=== PATIENT | male | born 1950 | race Caucasian/White ===

== ENCOUNTER 2021-06-30 17:16 | Emergency (ER) | payer MEDICAID, SELFPAY ==
[2021-06-30 17:34] VITALS: BP 114/76; PULSE 86; RESP 16; TEMP 36.7; O2SAT 96; BMI 23.0
[2021-06-30 18:07] VITALS: BP 131/76; PULSE 72; RESP 16; TEMP 36.9; O2SAT 92
--- NOTE | 2021-06-30 18:07 | ED_ITS ---
HPI - Nausea/Vomiting/Diarrhea General: Chief complaint: Nausea/Vomiting/Diarrhea Stated complaint: Nausia, Vomiting with blood Time Seen by Provider: 06/30/21 17:45 Source: patient Mode of arrival: ambulatory Limitations: no limitations History of Present Illness: HPI Narrative: 71-year-old male states for the last 5 to 6 days has been having generalized body aches low-grade fevers vomiting diarrhea he has had a slight cough. He states multiple family members have had similar symptoms but have not had any testing. He has had no shortness of breath denies any chest pain he states he has had some fatigue malaise and mainly body aches. He states that he has had some slight blood in his vomitus no blood in his stool. Associated nausea: Yes Associated symtoms: Reports nausea; Denies chest pain, dysuria or headache(s) Review of Systems Const: Reports: body aches Eyes: Denies: blurry vision or eye discomfort ENMT: Denies: throat pain or dental pain Card: Denies: chest pain Resp: Denies: dyspnea GI: Reports: nausea, vomiting and diarrhea : Denies: dysuria Musc: Denies: neck pain or back pain Skin/Breast: Denies: rash Neuro: Denies: headache(s) Psych: Denies: depression [place]/Lymph: Denies: easy bruising All/Imm: Denies: urticaria [facility] ED PFSH: Medical History (Updated 06/30/21 @ 20:05 by Ceasar Brown MD) Anxiety Blindness of right eye COPD (chronic obstructive pulmonary disease) Depression Dyslipidemia CHIKI (obstructive sleep apnea) PVD (peripheral vascular disease) Vitamin D deficiency Family History Other CAD (coronary artery disease) Cancer Myocardial infarction Thyroid disease Social History Smoking and tobacco status: former smoker Quit status (tobacco): has quit using tobacco Year quit tobacco: 2017 Alcohol intake: current Alcohol intake frequency: 0-2 Drinks per Day Physical Exam Const: COMMON NORMALS: no acute distress, patient oriented x3 and healthy appearing HENMT: COMMON NORMALS: normocephalic and atraumatic HEAD & SCALP: normocephalic and atraumatic Eye: COMMON NORMALS: Equal, round and reactive pupils present and EOMs intact bilaterally PUPIL: Yes Equal, round and reactive pupils present Neck/C-Spine: COMMON NORMALS: full ROM and supple Chest: COMMONS NORMALS: normal inspection of the chest and normal palpation of entire chest wall Resp: COMMON NORMALS: normal respiratory effort, No retractions, No use of accessory muscles and clear to auscultation bilaterally AUSCULTATION: clear to auscultation bilaterally Cardio: COMMON NORMALS: regular rate, regular rhythm and No murmurs present (Cardio) RATE: regular rate RHYTHM: regular rhythm GI: COMMON NORMALS: Normal to inspection, nondistended, normoactive bowel sounds present, Soft to palpation, non-tender and no masses PALPATION: Yes Soft to palpation Extremity: COMMON NORMALS: normal to inspection and full ROM Neuro: COMMON NORMALS: patient oriented x3, moves all extremities and no focal motor deficits Psych: COMMON NORMALS: mental status grossly normal, Normal thought process present and cooperative THOUGHT PROCESS: Normal thought process present Skin: COMMON NORMALS: no rashes or lesions noted and no wounds GENERAL SKIN EXAM: no rashes or lesions noted Course Vital Signs: Vital signs: Vital Signs Temperature 98.4 F 06/30/21 18:07 Pulse Rate 72 06/30/21 18:07 Respiratory Rate 16 06/30/21 18:07 Blood Pressure 131/76 06/30/21 18:07 Pulse Oximetry 92 06/30/21 18:07 MDM - Nausea/Vomiting/Diarrhea MDM Narrative: Medical decision making narrative: Patient presents with vomiting diarrhea and some body aches. Patient here is adamantly refusing Covid testing he does not want to do anything with Covid. I recommended testing because of the symptoms and the findings on CT I believe he might likely have Covid but he still refuses he is no requiring any oxygen here he feels improved after IV fluids will prescribe him Zofran he is return if worsening. Lab Data: Labs: Lab Results 06/30/21 06/30/21 06/30/21 18:05 18:05 18:05 WBC 7.3 10^3/uL 10^3/ uL (4.0-10.0) RBC 5.64 10^6/uL H 10 ^6/uL (4.1-5.3) Hgb 16.9 g/dL H g/dL (11.7-16.6) Hct 49.0 % % (42.0-52.0) MCV 86.9 fl fl (80-94) MCH 30.0 pg pg (28.0-34.0) MCHC 34.5 g/dL g/dL (30.0-36.0) RDW 13.6 % % (12.1-15.1) Plt Count 169 10^3/cmm 10^3 /cmm (130-400) MPV 11.0 fL H fL (7.4-10.4) Neut % (Auto) 71.3 % % Lymph % (Auto) 21.3 % % [place] % (Auto) 7.2 % % Eos % (Auto) 0.0 % % Baso % (Auto) 0.1 % % Neut # (Auto) 5.22 10^3/uL 10^3 /uL (1.8-7.7) Lymph # (Auto) 1.6 10^3/uL 10^3/ uL (0.8-4.8) [place] # (Auto) 0.5 10^3/uL 10^3/ uL (0.2-0.9) Eos # (Auto) 0.0 10^3/uL 10^3/ uL (0.0-0.8) Baso # (Auto) 0.0 10^3/uL 10^3/ uL (0.0-0.1) Nucleated RBC % (a uto) 0 % % Nucleated RBCs # 0.0 /100WBC /100W BC Sodium 131 mmol/L L mmol /L (136-145) Potassium 4.2 mmol/L mmol/L (3.5-5.1) Chloride 96 mmol/L L mmol/ L (98-107) Carbon Dioxide 25 mmol/L mmol/L (22-29) Anion Gap 14.2 (5-19) BUN 17 mg/dL mg/dL (8-23) Creatinine 0.7 mg/dL mg/dL (0.7-1.2) GFR Calculation 111.5 mL/min mL/m in (90-130) Glucose 112 mg/dL mg/dL (65-115) Calculated Osmolal ity 274 mOsm/kg L mOs m/kg (285-295) Calcium 8.1 mg/dL L mg/dL (8.5-10.5) Total Bilirubin 0.6 mg/dL mg/dL (0.15-1.2) AST 28 U/L U/L (0-40) ALT 18 U/L U/L (0-41) Alkaline Phosphata se 80 IU/L IU/L (40-130) Total Protein 7.4 g/dL g/dL (6.6-8.7) Albumin 3.9 g/dL g/dL (3.5-5.2) Globulin 3.5 g/dL g/dL (1.3-4.6) Lipase 13 U/L U/L (13-60) Urine Color Yellow (Yellow) Urine Appearance Clear (CLEAR) Urine pH 5 (5-7) Ur Specific Gravit y 1.025 (1.005-1.030) Urine Protein Trace (Negative) Urine Glucose (UA) Norm (Normal) Urine Ketones 2+ H (Negative) Urine Blood Neg (Negative) Urine Nitrate Negative (Negative) Urine Bilirubin Neg (Negative) Urine Urobilinogen Norm mg/dL mg/dL (Negative) Ur Leukocyte Angely ase Negative (Negative) Urine RBC 0-4 /hpf H /hpf (0-2) Urine WBC 0-4 /hpf H /hpf (0-5) Ur Squamous Epith Cells 0-4 /hpf H /hpf (0-5) Amorphous Sediment Not Reportable Urine Bacteria Trace /hpf /hpf (NONE) Urine Mucus 2+ /hpf /hpf Imaging Data^: CT Abd/Pel: Attestation: I personally reviewed and interpreted this imaging study as follows: Radiologist's impression: [address] [address] [address] Scan Report Signed with Addenda Patient: Jaswant Pastor Unit #: [id number] : 1950 Age/Sex: 71 / M ADM Date: 06/30/21 Loc: ER Room/Bed: Attending Dr: Ordering Provider/Ordering MD: Ceasar Brown MD Date of Service: 06/30/21 Procedure(s): CT abdomen pelvis w con* [id number] Accession Number(s): [id number] Report Number: [id number]/CT abdomen pelvis w con* [id number] Additional Impression: 4. Ground-glass opacities in the lung bases, consistent with pneumonia. This could be seen COVID-19 pneumonia. Addendum Dictated By: Nathan Perea Addendum Signed By: Nathan Perea Signed Date/Time: 06/30/21 2 007 Addendum Cosigned By: PROCEDURE INFORMATION: Exam: CT Abdomen And Pelvis With Contrast Exam date and time: 06/30/2021 6:42 PM Age: 71 years old Clinical indication: Nausea and vomiting; Abdominal pain; Generalized; Additional info: Abd pain, n/v/d, loss of appetite TECHNIQUE: Imaging protocol: Computed tomography of the abdomen and pelvis with contrast. Radiation optimization: All CT scans at this facility use at least one of these dose optimization techniques: automated exposure control; mA and/or kV adjustment per patient size (includes targeted exams where dose is matched to clinical indication); or iterative reconstruction. Contrast material: OMNI 300; Contrast volume: 95 ml; Contrast route: INTRAVENOUS (IV); COMPARISON: MRI Lumbar Spine w/o [id number] 01/16/2018 6:44 AM RADIATION DOSE METRICS: Total DLP (mGy-cm): 1151.17 FINDINGS: Lungs: Scattered ground-glass opacities in both lung bases. Diaphragm: Small hiatal hernia. Liver: Normal. No mass. Gallbladder and bile ducts: Normal. No calcified stones. No ductal dilation. Pancreas: Normal. No ductal dilation. Spleen: Normal. No splenomegaly. Adrenal glands: Normal. No mass. Kidneys and ureters: Hypodensity in the left kidney is too small to characterize but is most likely a cyst. No follow-up imaging is recommended. 4 mm and 2 mm nonobstructing calculi in the left kidney. No ureteral calculus or hydronephrosis. Stomach and bowel: Diverticulosis of the distal colon. No diverticulitis. The stomach and small bowel are unremarkable. No wall thickening or obstruction. Appendix: The appendix is visualized and is normal. Intraperitoneal space: Unremarkable. No free air. No significant fluid collection. Vasculature: Atherosclerotic disease with calcifications. No aneurysm. Lymph nodes: Unremarkable. No enlarged lymph nodes. Urinary bladder: The urinary bladder is decompressed with wall thickening measuring up to 8 mm. Reproductive: Mildly enlarged prostate. Bones/joints: Mild degenerative changes and scoliosis of the spine. No fracture identified. Soft tissues: Unremarkable. CT/CT abdomen pelvis w con* [id number] IMPRESSION: 1. Wall thickening of the urinary bladder may relate to nondistention, but cystitis is not excluded. Clinical correlation recommended. 2. Diverticulosis of the colon. 3. Nonobstructing left renal calculi. COMMENTS: Consistent with the [employer] [place] [employer]'s Incidental Findings Committee white paper (J Am Tirso Radiol 2018): Any incidental renal lesion less than 1 cm or classified as too small to characterize, or any incidental cystic renal lesion characterized as simple-appearing, is likely benign. No follow-up imaging is recommended for these lesions per consensus recommendations based on imaging criteria. Dictated By: Nathan Perea Signed By: Nathan Perea Signed Date/Time: 06/30/211935 DD/ 41 Discharge Plan Discharge Patient Disposition: Home Clinical Impression: Nausea vomiting and diarrhea Condition: Stable Prescriptions: New ondansetron 4 mg tablet,disintegrating 4 mg PO Q6H PRN (Reason: nausea and vomiting) Qty: 14 RF: 0 No Action meclizine 25 mg tablet 25 mg PO BID PRN (Reason: dizziness) Qty: 30 RF: 0 atorvastatin 40 mg tablet 40 mg PO DAILY Qty: 90 RF: 0 bupropion HCl [Wellbutrin XL] 150 mg tablet extended release 24 hr 150 mg PO QAM Qty: 90 RF: 0 buspirone 7.5 mg tablet 7.5 mg PO BID Qty: 120 RF: 0 fluticasone propionate [Flonase Allergy Relief] 50 mcg/actuation spray,suspension 1 spray INTRANASAL DAILY Qty: 16 RF: 2 tadalafil [Cialis] 20 mg tablet 20 mg PO DAILY PRN (Reason: sexual activity) Qty: 5 RF: 0 Anoro Ellipta 62.5-25 mcg/actuation blister with device 1 inh INHALATION Q24H Qty: 60 RF: 2 Discharge Orders: Discharge ED (Routine); Ordered 06/30/21 Ordered By: Ceasar Brown Referrals: Dov Pedraza DO [Primary Care Provider] - 1-3 days Discharge Diet: Advance as tolerated Discharge Activity: Resume usual activity Patient Instructions: Acute Nausea and Vomiting (ED) Coding Level of Care Code ED Biodies[employer] Product Manager for Chg Fwd Exam Comprehensive
[2021-06-30 18:16] LABS: Basophils % 0.1 %; Hemoglobin 16.9 g/dL (11.7-16.6); Lymphocytes # 1.6 10^3/uL (0.8-4.8); Lymphocytes % 21.3 %; Mean Corpuscular HGB Conc 34.5 g/dL (30.0-36.0); Mean Corpuscular Volume 86.9 fl (80-94); Monocytes # 0.5 10^3/uL (0.2-0.9); Monocytes % 7.2 %; Neutrophils # 5.22 10^3/uL (1.8-7.7); Neutrophils % 71.3 %; Nucleated Red Blood Cells % 0 %; Platelet Count 169 10^3/cmm (130-400); Red Blood Count 5.64 10^6/uL (4.1-5.3); Red Cell Distribution Width 13.6 % (12.1-15.1); White Blood Count 7.3 10^3/uL (4.0-10.0)
[2021-06-30 18:33] LABS: Alanine Aminotransferase 18 U/L (0-41); Albumin Level 3.9 g/dL (3.5-5.2); Alkaline Phosphatase 80 IU/L (40-130); Anion Gap 14.2 (5-19); Aspartate Amino Transferase 28 U/L (0-40); Blood Urea Nitrogen 17 mg/dL (8-23); Calcium 8.1 mg/dL (8.5-10.5); Carbon Dioxide 25 mmol/L (22-29); Chloride 96 mmol/L (98-107); Globulin 3.5 g/dL (1.3-4.6); Glomerular Filtration Rate 111.5 mL/min (90-130); Glucose 112 mg/dL (65-115); Lipase 13 U/L (13-60); Osmolality Calculated 274 mOsm/kg (285-295); Potassium 4.2 mmol/L (3.5-5.1); Sodium 131 mmol/L (136-145); Total Bilirubin 0.6 mg/dL (0.15-1.2); Total Protein 7.4 g/dL (6.6-8.7)
--- NOTE | 2021-06-30 18:42 | CTR_ITS ---
PROCEDURE INFORMATION: Exam: CT Abdomen And Pelvis With Contrast Exam date and time: 06/30/2021 6:42 PM Age: 71 years old Clinical indication: Nausea and vomiting; Abdominal pain; Generalized; Additional info: Abd pain, n/v/d, loss of appetite TECHNIQUE: Imaging protocol: Computed tomography of the abdomen and pelvis with contrast. Radiation optimization: All CT scans at this facility use at least one of these dose optimization techniques: automated exposure control; mA and/or kV adjustment per patient size (includes targeted exams where dose is matched to clinical indication); or iterative reconstruction. Contrast material: OMNI 300; Contrast volume: 95 ml; Contrast route: INTRAVENOUS (IV); COMPARISON: MRI Lumbar Spine w/o [id number] 01/16/2018 6:44 AM RADIATION DOSE METRICS: Total DLP (mGy-cm): 1151.17 FINDINGS: Lungs: Scattered ground-glass opacities in both lung bases. Diaphragm: Small hiatal hernia. Liver: Normal. No mass. Gallbladder and bile ducts: Normal. No calcified stones. No ductal dilation. Pancreas: Normal. No ductal dilation. Spleen: Normal. No splenomegaly. Adrenal glands: Normal. No mass. Kidneys and ureters: Hypodensity in the left kidney is too small to characterize but is most likely a cyst. No follow-up imaging is recommended. 4 mm and 2 mm nonobstructing calculi in the left kidney. No ureteral calculus or hydronephrosis. Stomach and bowel: Diverticulosis of the distal colon. No diverticulitis. The stomach and small bowel are unremarkable. No wall thickening or obstruction. Appendix: The appendix is visualized and is normal. Intraperitoneal space: Unremarkable. No free air. No significant fluid collection. Vasculature: Atherosclerotic disease with calcifications. No aneurysm. Lymph nodes: Unremarkable. No enlarged lymph nodes. Urinary bladder: The urinary bladder is decompressed with wall thickening measuring up to 8 mm. Reproductive: Mildly enlarged prostate. Bones/joints: Mild degenerative changes and scoliosis of the spine. No fracture identified. Soft tissues: Unremarkable. CT/CT abdomen pelvis w con* [id number] IMPRESSION: 1. Wall thickening of the urinary bladder may relate to nondistention, but cystitis is not excluded. Clinical correlation recommended. 2. Diverticulosis of the colon. 3. Nonobstructing left renal calculi. COMMENTS: Consistent with the [place] [employer]'s Incidental Findings Committee white paper (J Am Tirso Radiol 2018): Any incidental renal lesion less than 1 cm or classified as too small to characterize, or any incidental cystic renal lesion characterized as simple-appearing, is likely benign. No follow-up imaging is recommended for these lesions per consensus recommendations based on imaging criteria.
--- NOTE | 2021-06-30 18:49 | PC.NURSE ---
Pt refusing Influenza and Covid swabs at th time. advised
[2021-06-30] MEDS: iohexol 300 mg/mL 100 mL Btl IV (18:55)
[2021-06-30 19:05] LABS: Urine Color Yellow (Yellow)
[2021-06-30 19:06] LABS: Add Urine Microscopic? YES; Bilirubin Urine Neg (Negative); Blood Urine Neg (Negative); Glucose Urine UA Norm (Normal); Ketones Urine 2+ (Negative); Leukocyte Esterase Urine Negative (Negative); Nitrate Urine Negative (Negative); Protein Urine Trace (Negative); Specific Gravity, Urine 1.025 (1.005-1.030); Urine Appearance Clear (CLEAR); Urobilinogen Urine Norm (Negative); pH Urine 5 (5-7)
[2021-06-30 19:13] LABS: Add Urine Culture? No; Bacteria Urine TRACE /hpf; Mucus Urine 2+ /hpf; RBC Urine 0-4 /hpf (0-2); Squamous Epithelial Cell Urine 0-4 /hpf (0-5); WBC Urine 0-4 /hpf (0-5)
[2021-06-30] MEDS: ondansetron 2 mg/ML SDV 2 mL 4 MG IVP (19:50)
[2021-06-30] MEDS: sodium chloride 0.9% 1,000 ML 999 ML IV ×2 (19:50→20:01)
[2021-06-30] MEDS: diphenoxylate/atropine Tablet 1 TAB PO (19:59)
--- NOTE | 2021-06-30 20:21 | XRR_ITS ---
PROCEDURE INFORMATION: Exam: XR Chest Exam date and time: 06/30/2021 8:21 PM Age: 71 years old Clinical indication: Shortness of breath; Additional info: SOB TECHNIQUE: Imaging protocol: XR of the chest. Views: 1 view. COMPARISON: 1. CR Chest 2 views* [id number] 12/23/2017 9:[address] abdomen pelvis w con* [id number] 06/30/2021 6:52:30 PM FINDINGS: Lungs: Changes of emphysema. Subtle ground-glass opacities in the peripheral right lung base and both peripheral lungs is better visualized on the CT. No focal consolidation. Pleural spaces: Unremarkable. No pleural effusion. No pneumothorax. Heart/Mediastinum: Unremarkable. No cardiomegaly. Bones/joints: Unremarkable. XR/XR chest 1V portable [id number] IMPRESSION: 1. Subtle ground-glass opacities in both lungs, consistent with pneumonia.
[2021-06-30 20:46] VITALS: BP 137/84; PULSE 80; O2SAT 93
[2021-06-30] MEDS: ondansetron 4 MG Tablet PO (20:54)
== END 2021-06-30 20:55 | disposition home or self-care (01) ==
PROVIDERS: Family Medicine; Emergency Provider Emergency Medicine; PCP Family Medicine
DX: R11.2 Nausea with vomiting, unspecified (principal); R19.7 Diarrhea, unspecified; J44.9 Chronic obstructive pulmonary disease, unspecified; E78.5 Hyperlipidemia, unspecified; Z87.891 Personal history of nicotine dependence
CPT/HCPCS: 71045; 74177; 80053; 81001; 83690; 85025; 96361; 96374; 99283; J2405; J7030; Q0162; Q9967

== ENCOUNTER → 2022-07-06 12:11 | Outpatient (BNVA) | payer MEDICAID, SELFPAY | PROVIDERS: PCP Family Medicine; Visit Provider Family Medicine | DX: M25.512 Pain in left shoulder (principal); E78.5 Hyperlipidemia, unspecified; Z12.5 Encounter for screening for malignant neoplasm of prostate | CPT/HCPCS: 73030; 80053; 80061; 84443; 85025; G0103 ==

== ENCOUNTER → 2022-09-20 17:30 | Outpatient (BNVA) | payer MEDICARE, MEDICAID, SELFPAY | PROVIDERS: PCP Family Medicine; Visit Provider Family Medicine | DX: M25.512 Pain in left shoulder (principal); R53.83 Other fatigue; E55.9 Vitamin D deficiency, unspecified; R25.1 Tremor, unspecified; N52.9 Male erectile dysfunction, unspecified | CPT/HCPCS: 82306; 82607; 83540; 84403; 84443 ==

== ENCOUNTER → 2022-10-19 11:30 | Outpatient (BNVA) | payer MEDICARE, MEDICAID, SELFPAY | PROVIDERS: PCP Family Medicine; Visit Provider Family Medicine | DX: R05.9 Cough, unspecified (principal); R53.83 Other fatigue; J01.00 Acute maxillary sinusitis, unspecified; J30.2 Other seasonal allergic rhinitis | CPT/HCPCS: 87400; 87426 ==

== ENCOUNTER 2022-10-24 06:00 | Outpatient (RCR) | payer MEDICARE, MEDICAID, SELFPAY | END 2022-11-18 23:59 | disposition home or self-care (01) | LOC: TPT 06:00 | PROVIDERS: PCP Family Medicine; Visit Provider Family Medicine | DX: M25.512 Pain in left shoulder (principal) | CPT/HCPCS: 97110; 97140; 97162 ==

== ENCOUNTER 2022-11-19 06:00 | Outpatient (RCR) | payer MEDICARE, MEDICAID, SELFPAY | END 2022-11-30 23:59 | disposition home or self-care (01) | LOC: TPT 06:00 | PROVIDERS: PCP Family Medicine; Visit Provider Family Medicine | DX: M25.512 Pain in left shoulder (principal) | CPT/HCPCS: 97110; 97140 ==

== ENCOUNTER → 2023-02-15 10:24 | Outpatient (BNVA) | payer MEDICARE, MEDICAID, SELFPAY | PROVIDERS: PCP Family Medicine; Visit Provider Family Medicine | DX: Z12.2 Encounter for screening for malignant neoplasm of respiratory organs (principal); Z87.891 Personal history of nicotine dependence; J44.9 Chronic obstructive pulmonary disease, unspecified; E78.5 Hyperlipidemia, unspecified; Z12.5 Encounter for screening for malignant neoplasm of prostate; E55.9 Vitamin D deficiency, unspecified; R09.89 Other specified symptoms and signs involving the circulatory and respiratory systems | CPT/HCPCS: 80053; 80061; 82306; 84443; 85025; G0103 ==

== ENCOUNTER 2023-02-22 10:07 | Outpatient (CLI) | payer MEDICARE, MEDICAID, SELFPAY ==
--- NOTE | 2023-02-22 11:00 | CT_ITS ---
WS: [id number] LDCT LUNG CANCER SCREENING HISTORY: Z12.2 - Encounter for screening for malignant neoplasm TECHNIQUE: Axial imaging performed from the apices to 1 cm below the costophrenic angles. Coronal and sagittal reformats are submitted with axial MIP series. All CT scans at [facility] use at least one of these dose optimization techniques: automated exposure control; mA and/or kV adjustment per patient size (includes targeted exams where dose is matched to clinical indication); or iterativ e reconstruction. DLP: 86.71 mGy.cm DIvol: Mean CTDIvol: 1.70 (mGy) COMPARISON: None available. Diagnostic quality: Satisfactory Lungs: Moderate pulmonary hyperexpansion with central lobular emphysema. 3 to 5 mm noncalcified nodul es are noted at the lung apices. These are stable since 2011 CT. No pulmonary mass or pneumonia. No endobronchial lesions. Heart: Normal size heart with no pericardial effusion. Mild coronary artery calcification. Other findings: No mediastinal or hilar adenopathy. Small hiatal hernia. Nonobstructing calcification LEFT kidney. Normal adrenal glands. Biconcave fracture at T6 and T8. Mild anterior wedging of T10. A ge indeterminate fractures but new since 2018. CT/CT lung screening [id number] IMPRESSION: LUNG-RADS: 2S-Benign Appearance or Behavior with Significant Findings FOLLOW UP: 12 Month: Continue annual screening with LDCT OTHER FINDINGS (S MODIFIER): Age-indeterminate osteoporotic compression fractur es at T6, T8 and T10.
== END 2023-02-22 10:08 | disposition home or self-care (01) ==
LOC: RAD 10:11
PROVIDERS: PCP Family Medicine; Visit Provider Family Medicine
DX: Z12.2 Encounter for screening for malignant neoplasm of respiratory organs (principal); Z87.891 Personal history of nicotine dependence
CPT/HCPCS: 71271

== ENCOUNTER 2023-02-26 07:42 | Outpatient (CLI) | payer MEDICARE, MEDICAID, SELFPAY ==
--- NOTE | 2023-02-26 08:30 | USCV_ITS ---
Jaswant Pastor Age: 72 Gender: M : 1950 Exam Date: 02/26/2023 08:01 Ordering Phys: Sabra Jasso MD Technologist: Harley Kent Exam Location: [facility] [place] Indication: carotid bruit and dizziness Risk Factors: Previous Vascular Surgery: Right Brachial BP: / Left Brachial BP: / Right Left Velocity (cm/s) Spectral Plaque Velocity (cm/s) Spectral Plaque Syst/Diast Broadening Syst/Diast Broadening 68.40/ 18.70 Prox CCA 80.90 / 17.00 57.30/ 19.80 Mid CCA 50.20 / 13.70 48.00/ 16.40 Distal CCA 55.90 / 14.50 49.10/ 20.30 Prox ICA 57.30 / 17.50 56.70/ 21.10 Mid ICA 66.20 / 26.70 50.70/ 17.30 Distal ICA 64.60 / 24.60 54.60 ECA 84.80 0.99 ICA/CCA 1.32 Antegrade Vertebral Antegrade 44.00/ 14.50 cm/s 31.00/ 12.30 cm/s Tri Subclavian Bi 84.60 84.70 CONCLUSIONS Right ICA stenosis <50%. Mild atheromatous plaque right carotid bulb/ICA. Left ICA stenosis <50%. Mild atheromatous plaque left carotid bulb/ICA. Normal antegrade Doppler flow noted in the right vertebral artery. Normal antegrade Doppler flow noted in the left vertebral artery. Toan Napoles MD (Electronically Signed) Final Date: 26 February 2023 09:22 S
== END 2023-02-26 07:43 | disposition home or self-care (01) ==
PROVIDERS: PCP Family Medicine; Visit Provider Family Medicine
DX: R09.89 Other specified symptoms and signs involving the circulatory and respiratory systems (principal); R42 Dizziness and giddiness
CPT/HCPCS: 80053; 80061; 82306; 84443; 85025; 93880; G0103

== ENCOUNTER → 2024-04-20 09:52 | Outpatient (BNVA) | payer MEDICAID, MEDICARE, SELFPAY | PROVIDERS: PCP Family Medicine; Visit Provider Nurse Practitioner Family | DX: M54.50 Low back pain, unspecified (principal) | CPT/HCPCS: 81000 ==

== ENCOUNTER 2024-05-13 09:51 | Emergency (ER) | payer MEDICARE, SELFPAY ==
[2024-05-13 10:18] VITALS: BP 144/74; PULSE 59; RESP 16; TEMP 36.4; O2SAT 98; BMI 24.4
--- NOTE | 2024-05-13 10:29 | XR_ITS ---
WS: [id number] Exam: XR abdomen 1V* [id number] Date/Time of Exam: 05/13/2024 11:02 AM Reason For Exam: abd pain No bowel obstruction or free air. No sign of organ enlargement. Mild degenerative changes of the L-sp ine. XR/XR abdomen 1V* [id number] IMPRESSION: 1. No acute abdominal process.
[2024-05-13 10:42] LABS: Basophils # 0.1 10^3/uL (0.0-0.1); Basophils % 0.9 %; Eosinophils # 0.2 10^3/uL (0.0-0.8); Eosinophils % 2.2 %; Hematocrit 44.7 % (37-53); Lymphocytes # 3.8 10^3/uL (0.8-4.8); Lymphocytes % 43.9 %; Mean Corpuscular HGB Conc 32.7 g/dL (30-55); Mean Corpuscular Hemoglobin 28.8 pg (27-33); Mean Corpuscular Volume 88.2 fl (82-101); Mean Platelet Volume 10.4 fL (7.4-10.4); Monocytes # 0.8 10^3/uL (0.2-0.9); Monocytes % 9.6 %; Neutrophils # 3.77 10^3/uL (1.8-7.7); Neutrophils % 43.1 %; Nucleated Red Blood Cells % 0 %; Platelet Count 246 10^3/cmm (157-399); Red Blood Count 5.07 10^6/uL (3.85-5.65); Red Cell Distribution Width 14.8 % (12.1-15.1); White Blood Count 8.75 10^3/uL (3.29-11.43)
[2024-05-13 11:00] LABS: Alanine Aminotransferase 11 U/L (0-41); Albumin Level 3.7 g/dL (3.5-5.2); Alkaline Phosphatase 86 U/L (40-130); Blood Urea Nitrogen 13 mg/dL (8-23); Calcium 8.3 mg/dL (8.5-10.5); Carbon Dioxide 24 mmol/L (22-29); Chloride 101 mmol/L (98-107); Creatinine Clr Calc Pharmacy 81.9083; Globulin 3.2 g/dL (1.3-4.6); Glucose 101 mg/dL (65-115); Osmolality Calculated 280 mOsm/kg (285-295); Sodium 135 mmol/L (136-145); Total Bilirubin 0.4 mg/dL (0.15-1.2); Total Protein 6.9 g/dL (6.6-8.7)
[2024-05-13 11:01] VITALS: BP 139/91; PULSE 59; O2SAT 97
[2024-05-13 11:02] LABS: Anion Gap 14.7 (5-19); Aspartate Amino Transferase 17 U/L (0-40); Potassium 4.7 mmol/L (3.5-5.1)
--- NOTE | 2024-05-13 11:25 | ED_ITS ---
HPI - Abdominal Pain 2 General: Chief Complaint: Abdominal Pain Stated Complaint: abd pain Time Seen by Provider: 05/13/24 10:58 History of Present Illness: 74-year-old man who presents emergency r oom with lower abdominal pain, constipation and intermittent hematuria or dark urine for the past month and a half. His doctor in [place] retired so he has not been to see them. He had gone to urgent care and they had him take some mag citrate and stool softeners which has not helped. He says he does finally has had enough of it and so he came to the emergency room. No fevers. No chest pain. No nausea or vomiting. Describes pain in his pelvic area at times. Very minimal currently. Related Data Home Medications Medication Instructions Recorded Confirmed umeclidinium 62.5 mcg-vilanterol 1 inh inhalation DAILY 05/13/24 05/13/24 25 mcg/actuation powdr for inhalation (Anoro Ellipta) Previous Rx's Medication Instructions Recorded tadalafil 20 mg tablet (Cialis) 20 mg PO DAILY PRN sexual activity 09/20/22 #30 tabs ergocalciferol (vitamin D2) 1,250 1,250 mcg PO .weekly #12 caps 02/15/23 mcg (50,000 unit) capsule (Vitamin D2) albuterol sulfate 90 mcg/actuation 2 inh inhalation QID PRN shortness 06/03/23 aerosol inhaler of breath or wheezing #8.5 grams ciprofloxacin HCl 500 mg tablet 500 mg PO BID 10 days #20 tabs 05/13/24 magnesium citrate 296 ml PO ONCE #296 mL 05/13/24 metronidazole 500 mg tablet 500 mg PO Q8H 10 days #30 tabs 05/13/24 polyethylene glycol 3350 17 17 g PO DAILY #510 grams 05/13/24 gram/dose oral powder (Miralax) Allergies Allergy/AdvReac Type Severity Reaction Status Date / Time No Known Allergies Allergy Verified 04/20/24 09:43 Review of Systems 2 Narrative: Constitutional symptoms: Negative except as documented in HPI. Skin symptoms: Negative except as documented in HPI. Eye symptoms: Negative except as documented in HPI. ENMT symptoms: Negative except as documented in HPI. Respiratory symptoms: Negative except as documented in HPI. Cardiovascular symptoms: Negative except as documented in HPI. Gastrointestinal symptoms: Negative except as documented in HPI. Genitourinary symptoms: Negative except as documented in HPI. Musculoskeletal symptoms: Negative except as documented in HPI. Neurologic symptoms: Negative except as documented in HPI. Psychiatric symptoms: Negative except as documented in HPI. Endocrine symptoms: Negative except as documented in HPI. PFSH ED 2 PFSH: Medical History COPD (chronic obstructive pulmonary disease) Blindness of right eye Anxiety Depression Vitamin D deficiency CHIKI (obstructive sleep apnea) Dyslipidemia PVD (peripheral vascular disease) COPD (chronic obstructive pulmonary disease) Family History Other CAD (coronary artery disease) Cancer Myocardial infarction Thyroid disease Social History Smoking and tobacco/nicotine status: never used tobacco/nicotine Quit status (tobacco/nicotine): has quit using Year quit tobacco: 2016 Alcohol intake: current Alcohol intake frequency: 0-2 Drinks per Day Substance/Drug Use: never Physical Exam 2 Narrative: EXAM NARRATIVE: General: Alert, no acute distress. Skin: Warm, dry. Head: Normocephalic, atraumatic. Neck: Supple, trachea midline. Eye: Extraocular movements are intact. Ears, nose, mouth and throat: mucosa moist. Cardiovascular: Regular, Normal peripheral perfusion. Respiratory: Lungs are clear to auscultation, respirations are non-labored, breath sounds are equal, Symmetrical chest wall expansion. Gastrointestinal: Soft, Nontender, Non distended Musculoskeletal: Normal ROM, no deformity. Neurological: Alert and oriented, No focal neurological deficit observed. Psychiatric: Cooperative, appropriate mood & affect. Course 2 Vital Signs: Vital signs: Vital Signs Temperature 97.6 F 05/13/24 10:18 Pulse Rate 60 05/13/24 12:24 Respiratory Rate 16 05/13/24 10:18 Blood Pressure 132/77 05/13/24 12:25 Pulse Oximetry 94 05/13/24 12:24 Oxygen Delivery Me thod Room Air 05/13/24 12:24 MDM - Abdominal Pain Medical Decision Making Medical decision making: Differential diagnosis including but not limited to and based on the above HPI, review of systems and physical exam: Constipation, diverticulitis, urinary retention, urinary tract infection, bladder cancer, etc. Orders placed to evaluate differential diagnosis based on the above differential, HPI and physical exam Abdomen x-ray: Nonspecific bowel gas pattern. No evidence of free air or obstruction. This was reviewed and interpreted by myself the emergency room physician. Lab Review: Laboratory results were reviewed and interpreted by myself the emergency room physician. Lab work is unremarkable. No leukocytosis. No anemia. No renal failure. Patient does have significant hematuria. CT of the abdomen pelvis with contrast: Probable diverticulitis. Of the sigmoid colon. Also concern for a lesion in the bladder there is 2.3 x 1.6 cm. This was reviewed and interpreted by myself the emergency room physician. I also reviewed the radiology report. Consultation: I spoke with Dr. Johnny Holder urologist in [place]. He will see the patient in clinic either tomorrow or Saturday. Patient to call clinic when they leave here. Also sending the CD containing his imaging. I reviewed the patient's medical record. Reexamination: Patient remained stable. No increased work of breathing. No altered mental status. No focal motor deficits. We discussed the findings at length. Discussed diverticulitis and constipation. Also discussed the finding in his bladder and they will call Dr. Holder's office as soon as they leave and schedule appointment. Assessment and plan: Diverticulitis Constipation Bladder mass Hematuria Home on Cipro and Flagyl. Meds for constipation. Following with urology. - Discharged home - Discussed findings and plan with patient. Answered any questions. - All laboratory values were reviewed and interpreted personally by myself, the ER physician - All imaging was reviewed and interpreted personally by myself, the ER physician. - Evaluation and treatment of this problem were appropriate in the emergency setting Lab Data 05/13/24 10:38 05/13/24 10:38 Labs/Radiology: Radiology Impressions Abdomen X-Ray 05/13/24 10:29 IMPRESSION: 1. No acute abdominal process. Abdomen/Pelvis CT 05/13/24 11:31 IMPRESSION: 1. Diffuse thickening with enhancement of sigmoid colon suspicious for acute diverticulitis. No evidence of drainable abscess or fluid collection. 2. Enhancing polypoid heterogeneous lesion in the inferior bladder suspicious for polypoid neoplasm measuring 2.3 x 1.6 cm. Recommend urology consultation and further evaluation with cystoscopy. 3. Mild prostate enlargement measuring 3.7 cm. Recommend correlation PSA. 4. Small esophageal hiatal hernia. 5. No other acute findings. Laboratory Results WBC 8.75 10^3/uL (3.29-11.43) 05/13/24 10:38 RBC 5.07 10^6/uL (3.85-5.65) 05/13/24 10:38 Hgb 14.60 g/dL (11.27-16.99) 05/13/24 10:38 Hct 44.7 % (37-53) 05/13/24 10:38 MCV 88.2 fl (82-101) 05/13/24 10:38 MCH 28.8 pg (27-33) 05/13/24 10:38 MCHC 32.7 g/dL (30-55) 05/13/24 10:38 RDW 14.8 % (12.1-15.1) 05/13/24 10:38 Plt Count 246 10^3/cmm (157-399) 05/13/24 10:38 MPV 10.4 fL (7.4-10.4) 05/13/24 10:38 Neut % (Auto) 43.1 % 05/13/24 10:38 Lymph % (Auto) 43.9 % 05/13/24 10:38 Lamar % (Auto) 9.6 % 05/13/24 10:38 Eos % (Auto) 2.2 % 05/13/24 10:38 Baso % (Auto) 0.9 % 05/13/24 10:38 Neut # (Auto) 3.77 10^3/uL (1.8-7.7) 05/13/24 10:38 Lymph # (Auto) 3.8 10^3/uL (0.8-4.8) 05/13/24 10:38 Lamar # (Auto) 0.8 10^3/uL (0.2-0.9) 05/13/24 10:38 Eos # (Auto) 0.2 10^3/uL (0.0-0.8) 05/13/24 10:38 Baso # (Auto) 0.1 10^3/uL (0.0-0.1) 05/13/24 10:38 Nucleated RBC % (auto) 0 % 05/13/24 10:38 Nucleated RBCs # 0.0 /100WBC 05/13/24 10:38 Sodium 135 mmol/L (136-145) L 05/13/24 10:38 Potassium 4.7 mmol/L (3.5-5.1) 05/13/24 10:38 Chloride 101 mmol/L (98-107) 05/13/24 10:38 Carbon Dioxide 24 mmol/L (22-29) 05/13/24 10:38 Anion Gap 14.7 (5-19) 05/13/24 10:38 BUN 13 mg/dL (8-23) 05/13/24 10:38 Creatinine 0.9 mg/dL (0.7-1.2) 05/13/24 10:38 GFR Calculation Not Reportable 05/13/24 10:38 Glucose 101 mg/dL (65-115) 05/13/24 10:38 Calculated Osmolality 280 mOsm/kg (285-295) L 05/13/24 10:38 Calcium 8.3 mg/dL (8.5-10.5) L 05/13/24 10:38 Total Bilirubin 0.4 mg/dL (0.15-1.2) 05/13/24 10:38 AST 17 U/L (0-40) 05/13/24 10:38 ALT 11 U/L (0-41) 05/13/24 10:38 Alkaline Phosphatase 86 U/L (40-130) 05/13/24 10:38 Total Protein 6.9 g/dL (6.6-8.7) 05/13/24 10:38 Albumin 3.7 g/dL (3.5-5.2) 05/13/24 10:38 Globulin 3.2 g/dL (1.3-4.6) 05/13/24 10:38 Urine Color Red (Yellow) A 05/13/24 11:38 Urine Appearance Cloudy (CLEAR) A 05/13/24 11:38 Urine pH TNP 05/13/24 11:38 Ur Specific [place] TNP 05/13/24 11:38 Urine Protein TNP 05/13/24 11:38 Urine Glucose (UA) TNP 05/13/24 11:38 Urine Ketones TNP 05/13/24 11:38 Urine Blood TNP 05/13/24 11:38 Urine Nitrate TNP 05/13/24 11:38 Urine Bilirubin TNP 05/13/24 11:38 Urine Urobilinogen TNP 05/13/24 11:38 Ur Leukocyte Esterase TNP 05/13/24 11:38 Urine RBC Too numerous to cnt /hpf (0-2) H 05/13/24 11:38 Urine WBC 0-4 /hpf (0-5) H 05/13/24 11:38 Ur Squamous Epith Cells 0-4 /hpf (0-5) H 05/13/24 11:38 Amorphous Sediment Not Reportable 05/13/24 11:38 Urine Bacteria Trace /hpf (NONE) 05/13/24 11:38 All radiology interpretation(s) finalized by discharge Discharge Plan Discharge Patient Disposition: Home Clinical Impression: Diverticulitis, Constipation, Bladder mass, Hematuria Condition: Stable Prescriptions: New metronidazole 500 mg tablet 500 mg PO Q8H 10 Days Qty: 30 0RF ciprofloxacin HCl 500 mg tablet 500 mg PO BID 10 Days Qty: 20 0RF magnesium citrate Solution 296 ml PO ONCE Qty: 296 0RF polyethylene glycol 3350 [Miralax] 17 gram/dose powder 17 g PO DAILY Qty: 510 0RF Rx Instructions: Take 1-2 scoops daily for the next 3 months to keep stools soft No Action tadalafil [Cialis] 20 mg tablet 20 mg PO DAILY PRN (Reason: sexual activity) Qty: 30 0RF Rx Instructions: administer approx 30min before sexual activity; no more than 1 dose per 24hrs ergocalciferol (vitamin D2) [Vitamin D2] 1,250 mcg (50,000 unit) capsule 1,250 mcg PO .weekly Qty: 12 2RF albuterol sulfate 90 mcg/actuation HFA aerosol inhaler 2 inh inhalation QID PRN (Reason: shortness of breath or wheezing) Qty: 8.5 3RF Anoro Ellipta 62.5-25 mcg/actuation blister with device 1 inh inhalation DAILY Discharge Orders: Discharge ED (Routine); Ordered 05/13/24 Ordered By: Yaneth Soliman Referrals: Johnny Holder MD [Referring] - 1-3 days (Please call for an appointment. Tell staff that Dr. Grey talked to Dr. Holder and he wants to see you either or Saturday of this week) Sabra Jasso MD [Primary Care Provider] - Discharge Diet: Usual diet Discharge Activity: Increase activity as tolerated Patient Instructions: Diverticulitis (ED) Activity Restrictions/Additional Instructions: Thank you for choosing [facility] for your healthcare needs today. Please realize this is an emergency room and that we are providing you with a medical screening exam and this may not be complete and all inclusive of all the testing and or work up that you may need to determine your ailment or severity of your illness. You have been screened and evaluated and felt safe for discharge. Health conditions do change or evolve sometimes and as such it is important that you follow up with your Primary Doctor to be re checked, 3-5 days is a general good time frame for follow up. You are always welcome to return to the ED for re assessment if your symptoms are worsening or you have new concerns Coding Level of Care Code ED Safety And Skill Based Pay Manager for Marco A Vera
--- NOTE | 2024-05-13 11:31 | CT_ITS ---
WS: [id number] CT ABDOMEN PELVIS TECHNIQUE: Contrast-enhanced CT of the abdomen and pelvis with coronal and sagittal reformatted image s. CLINICAL INFORMATION: Abdominal pain COMPARISON: 2020 DLP: 645.[address] scans at [facility] use at least one of these dose optimization techniques: automated e xposure control; mA and/or kV adjustment per patient size (includes targeted exams where dose is matc hed to clinical indication); or iterative reconstruction. FINDINGS: Enhancing polypoid type lesion in the base of the bladder measuring 2.3 x 1.6 cm suspicious for neopl asm. Recommend further evaluation with cystoscopy. Extensive sigmoid diverticulosis with diffuse thickening of the sigmoid colon and mild surrounding in duration suspicious for acute diverticulitis. Recommend correlation with infectious symptoms. This ap pears progressed compared to 202 Normal appendix in the RIGHT lower quadrant. No evidence of acute appendicitis. Adrenal glands are no rmal. No hydronephrosis in either kidney. Small LEFT renal cyst. Lung bases are well aerated. Calcifi ed granuloma LEFT lower lobe. Mild diffuse fatty infiltration of the liver. Normal portal vein and sp lenic vein. Normal spleen. Small esophageal hernia. Normal caliber abdominal aorta. Aortic calcificat ion. Celiac and SMA are patent. Normal pancreatic parenchymal enhancement. Normal gallbladder. Tiny f at-containing umbilical hernia. CT/CT abdomen pelvis w con* [id number] IMPRESSION: 1. Diffuse thickening with enhancement of sigmoid colon suspicious for acute d iverticulitis. No evidence of drainable abscess or fluid collection. 2. Enhancing polypoid heterogeneous lesion in the inferior bladder suspicious for polypoid neoplasm measuring 2.3 x 1.6 cm. Recommend urology consultation an d further evaluation with cystoscopy. 3. Mild prostate enlargement measuring 3.7 cm. Recommend correlation PSA. 4. Small esophageal hiatal hernia. 5. No other acute findings.
[2024-05-13 11:49] VITALS: BP 135/69; PULSE 50; O2SAT 94
[2024-05-13] MEDS: iohexol 350 mg/mL 500 mL Btl (per mL) IV (12:00)
[2024-05-13 12:11] LABS: RBC Urine TOO NUMEROUS TO CNT /hpf (0-2); Urine Appearance Cloudy (CLEAR); Urine Color Red (Yellow); WBC Urine 0-4 /hpf (0-5)
[2024-05-13 12:12] LABS: Bacteria Urine TRACE /hpf; Squamous Epithelial Cell Urine 0-4 /hpf (0-5)
[2024-05-13 12:15] LABS: Add Urine Culture? Yes
[2024-05-13 12:24] VITALS: PULSE 60; O2SAT 94
[2024-05-13 12:25] VITALS: BP 132/77
[2024-05-13 13:27] VITALS: BP 147/81; PULSE 69; O2SAT 95
== END 2024-05-13 13:31 | disposition home or self-care (01) ==
PROVIDERS: Emergency Provider Emergency Medicine; PCP Family Medicine
DX: K57.92 Diverticulitis of intestine, part unspecified, without perforation or abscess without bleeding (principal); K59.00 Constipation, unspecified; N32.89 Other specified disorders of bladder; R31.9 Hematuria, unspecified
CPT/HCPCS: 36415; 74018; 74177; 80053; 81001; 85025; 87086; 99285

== ENCOUNTER 2024-06-30 12:35 | Outpatient (CLI) | payer MEDICARE, SELFPAY ==
--- NOTE | 2024-06-30 12:51 | CT_ITS ---
WS: [id number] CT CHEST, ABDOMEN AND PELVIS WITH AND WITHOUT CONTRAST HISTORY: BLADDER CANCER TECHNIQUE: Multiphase imaging performed. Contiguous 5 mm axial imaging performed through the chest, a bdomen and pelvis with and without IV contrast, oral contrast has not been provided. Coronal and sagi ttal reformats chest. Coronal and sagittal reformats through the abdomen and pelvis. All CT scans at [facility] use at least one of these dose optimization techniques: automated exposure control ; mA and/or kV adjustment per patient size (includes targeted exams where dose is matched to clinical indication); or iterative reconstruction. CONTRAST: Omnipaque 350; 100 mL IV. DLP: 1927.43 mGy.cm COMPARISON: 05/13/[address]: Moderate pulmonary hyperexpansion from emphysema. No pulmonary mass or nodule. Benign granu carroll medial LEFT lower lobe. No pneumonia, pericardial or pleural effusions. Moderate atherosclerosis thoracic aorta with no dilatation. Normal size pulmonary artery. Indeterminate RIGHT hilar lymph nod e at 12 mm. The remaining lymph nodes are normal in size. No chest wall mass or abnormality. Moderate increase in thoracic kyphosis. Biconcave compression fractures at T6 and T8. Small hiatal hernia. He art is normal size. There is a small moderate tricuspid regurgitation into the hepatic veins. Abdomen CT: Normal size liver. Normal portal vein. No mass or intrahepatic duct dilatation. Gallbladd er is normal. Normal spleen and pancreas. No adrenal mass. Moderate plaque throughout the aorta. Smal l amount of atheromatous plaque at the origins of the SMA and celiac axis with no high-grade stenosis . RIGHT kidney: 11.5 cm in length. No obstruction or hydronephrosis. No mass or calcification. Good exc retion of contrast on the delayed imaging from the renal pelvis. The ureter is incompletely opacified with excreted contrast. Ureter is not dilated. LEFT kidney: 11.8 cm in length. No hydronephrosis. Well-circumscribed 9 x 8 mm low-attenuation mass i n the superior pole. Hounsfield units are slightly elevated on the noncontrast study. No obvious enha ncement. This is a very small mass and will need to be further evaluated. No change since 05/13/2024. Nonobstructing 7 mm calcification mid kidney. Tiny calcification lower pole. There is good excretion from the kidney. No uroepithelial lesions. Majority of the ureter is distended with excreted contras t. No mass identified. Nondistended stomach. No small bowel or colon obstruction. Normal appendix. Numerous diverticula in t he descending and sigmoid colon with chronic wall thickening of the colon. Less inflammation than on the prior study. There is no abscess. Pelvic CT: Urinary bladder is well distended. High density on the noncontrast along the LEFT bladder wall. This is at the site of the prior bladder mass. The mass is no longer present. On the postcontra st imaging no residual mass identified. There is no extravasation of contrast from the bladder. No ad enopathy in the pelvis. No osteolytic or osteoblastic lesions noted in the spine or pelvis. CT/CT ch abdpel wo/w [id number] IMPRESSION: 1. Postsurgical resection of the LEFT bladder mass. No residual mass identifie d. There are postsurgical changes in the LEFT lateral bladder. 2. No ascites. 3. No adenopathy in the abdomen or pelvis. There is a single indeterminate RIG HT hilar lymph node measuring 12 mm. 4. No metastatic nodules in the lungs. 5. Kidneys are normal size with no obstruction. 6. Indeterminate but unchanged low-attenuation mass superior pole LEFT kidney measures 9 x 8 mm. Mass does not appear to enhance. Consider follow-up imaging evaluation. CT or MRI with and without contrast would provide additional inform ation. 7. No uroepithelial lesions. 8. Advanced distal colon diverticulosis without acute diverticulitis. 9. Moderate emphysema. 10. Nonobstructing calcifications LEFT renal pelvis.
[2024-06-30] MEDS: iohexol 350 mg/mL 500 mL Btl (per mL) IV (13:04)
== END 2024-06-30 12:36 | disposition home or self-care (01) ==
LOC: RAD 12:35
PROVIDERS: PCP Family Medicine; Visit Provider Urology
DX: C67.9 Malignant neoplasm of bladder, unspecified (principal); D41.02 Neoplasm of uncertain behavior of left kidney; K57.90 Diverticulosis of intestine, part unspecified, without perforation or abscess without bleeding; J43.9 Emphysema, unspecified; N20.0 Calculus of kidney; I70.0 Atherosclerosis of aorta; I07.1 Rheumatic tricuspid insufficiency; Z98.890 Other specified postprocedural states
CPT/HCPCS: 71260; 74178

== ENCOUNTER 2024-07-02 07:47 | Outpatient (CLI) | payer MEDICARE, SELFPAY ==
--- NOTE | 2024-07-02 08:00 | NM_ITS ---
WS: [id number] NUCLEAR MEDICINE WHOLE BODY BONE SCAN HISTORY: BLADDER CANCER COMPARISON: None available. TECHNIQUE: The patient was injected with 26.9 mCi of Technetium 99m HDP and serial whole-body scintig bobo have been performed with anterior and posterior images. No metastatic lesions within the ribs or spine. No uptake within the pelvis or proximal extremities. Normal soft tissue uptake and renal uptake. Degenerative osteoarthritic changes bilaterally in the knees, LEFT greater than RIGHT. Mild AC joint arthritis. LEFT carpal arthropathy. NM/NM bone scan whole body* [id number] IMPRESSION: No evidence for osseous metastatic disease.
== END 2024-07-02 07:48 | disposition home or self-care (01) ==
PROVIDERS: PCP Family Medicine; Visit Provider Urology
DX: C67.9 Malignant neoplasm of bladder, unspecified (principal)
CPT/HCPCS: 78306; A9561

== ENCOUNTER → 2024-10-06 08:09 | Outpatient (BNVA) | payer MEDICARE, SELFPAY | PROVIDERS: PCP Nurse Practitioner Family; Visit Provider Surgery | DX: Z12.11 Encounter for screening for malignant neoplasm of colon (principal) | CPT/HCPCS: 99024; 99204 ==

== ENCOUNTER 2024-11-12 07:02 | Day surgery (SDC) | payer MEDICARE, SELFPAY ==
[2024-11-12 07:29] VITALS: BP 97/62; PULSE 50; RESP 16; TEMP 36.1; O2SAT 98
--- NOTE | 2024-11-12 07:32 | W.PM.OPSFHP ---
Same Day Surgery H&P Indication for Procedure/HPI DATE OF PROCEDURE: November 12, 2024 CHIEF COMPLAINT/INDICATIONFOR SURGICAL PROCEDURE: need for screening colonoscopy PREOP DIAGNOSIS: need for screening colonoscopy PLANNED PROCEDURE: Operation Date: 11/12/24 09:00 Proposed Procedures p Colonoscopy 70454 G0105 Z12.11(Not Applicable) - Polo Lu MD Medications/Allergies* Allergies/Adverse Reactions Allergy/AdvReac Type Severity Reaction Status Date / Time No Known Allergies Allergy Verified 11/09/24 09:27 Pertinent History/Comorbid Conditions* Medical History (Updated 05/21/24 @ 00:02 by LAURITA Mohr) COPD (chronic obstructive pulmonary disease) Blindness of right eye Anxiety Depression Vitamin D deficiency CHIKI (obstructive sleep apnea) Dyslipidemia PVD (peripheral vascular disease) COPD (chronic obstructive pulmonary disease) Family History (Updated 09/29/19 @ 13:20 by Maggie Holden LPN) CAD (coronary artery disease) Myocardial infarction Cancer Thyroid disease Social History Smoking and tobacco/nicotine status: former use of tobacco/nicotine Quit status (tobacco/nicotine): has quit using Year quit tobacco: 2017 Alcohol intake: current Alcohol intake frequency: 0-2 Drinks per Day Substance/Drug Use: never Pertinent Exam Findings alert, oriented x 3 and clear to auscultation bilaterally Recommendations Surgery/Procedure today Coding Level of Care Code Acute Code for Chg Fwd
[2024-11-12] MEDS: sodium chloride 0.9% 1,000 ML 15 ML IV (07:39)
--- NOTE | 2024-11-12 08:09 | ANES.PREANE2 ---
Pre-Anesthetic Assessment Height/Weight: Height 1.83 m Weight 72.575 kg Temp Pulse Resp BP Pulse Ox O2 Del Method 97.0 F L 50 L 16 97/62 98 Room Air 11/12/24 07:29 11/12/24 07:29 11/12/24 07:29 11/12/24 07:29 11/12/24 07:29 11/12/24 07:29 Preop Diagnosis: need for screening colonoscopy Operation Date: 11/12/24 09:00 Proposed Procedures p Colonoscopy 13087 G0105 Z12.11(Not Applicable) - Polo Lu MD Familial anesthetic complications: none Was Beta Geri taken within 24 hours: N/A Was Clonidine taken within 24 hours: N/A Last intake: Intake Last Liquid Date 11/12/24 Last Liquid Time 05:00 Last Solid Date 11/10/24 Last Solid Time 16:00 Social No alcohol and No tobacco Exam alert, oriented x 3 and clear to auscultation bilaterally Airway Mallampati: Class I Dentition: false History/ROS No significant history except as noted Pulmonary Chronic Obstructive Pulmonary Disease and Sleep Apnea (does not wear CPAP) CV/HEM None reported recently had a bladder tumor removed, pt states everything is now back to baseline. Hepatic None reported GI None reported Metabolic None reported Musc/skel None reported Neuropsych None reported Anesthetic Plan ASA status: 2 Anesthesia: Anesthesia Evaluation and MAC Risk of > 500 ml blood loss (7ml/kg in children): No Medications/Allergies Home Medications ?Medication ?Instructions ?Recorded ?Confirmed ?Last Taken ?Type ondansetron 8 mg disintegrating 8 mg PO Q8H PRN nausea and 10/06/24 11/09/24 Unknown Rx tablet vomiting #3 tabs Allergies Allergy/AdvReac Type Severity Reaction Status Date / Time No Known Allergies Allergy Verified 11/09/24 09:27 Current Medications Generic Name Dose Route Start Last Admin Trade Name Freq PRN Reason Stop Dose Admin Sodium Chloride 1,000 mls @ 15 mls/hr 11/12/24 07:07 11/12/24 07:39 Sodium Chloride 0.9% IV 11/13/24 07:06 15 mls/hr .Q24H PRN Administration COLONOSCOPY FLUIDS PFSH Anesthesia Medical History COPD (chronic obstructive pulmonary disease) Blindness of right eye Anxiety Depression Vitamin D deficiency CHIKI (obstructive sleep apnea) Dyslipidemia PVD (peripheral vascular disease) COPD (chronic obstructive pulmonary disease) Family History Other CAD (coronary artery disease) Cancer Myocardial infarction Thyroid disease Social History (Updated 10/06/24 @ 09:16 by JERO Gonazles) Smoking and tobacco/nicotine status: former use of tobacco/nicotine Quit status (tobacco/nicotine): has quit using Year quit tobacco: 2017 Alcohol intake: current Alcohol intake frequency: 0-2 Drinks per Day Substance/Drug Use: never Data Anesthesia Cardiac Studies: No Data to Display
[2024-11-12 08:52] VITALS: BP 115/61; PULSE 53; RESP 14; TEMP 36.1; O2SAT 97
[2024-11-12 09:09] VITALS: BP 122/73; PULSE 57; RESP 16; O2SAT 98
--- NOTE | 2024-11-12 09:35 | ANE.PACU2 ---
Inpatient post-anesthesia follow up: Airway intact: Yes Vital signs: Temperature 97 F Pulse Rate 57 Respiratory Rate 16 Blood Pressure 122/73 Pulse Oximetry 98 Oxygen Delivery Me thod Room Air Oxygen Flow Rate Fraction of Inspir ed Oxygen Hydration adequate: Yes Nausea and vomiting: No Pain level: 1 Mental status: Baseline
== END 2024-11-12 09:35 | disposition home or self-care (01) ==
PROVIDERS: PCP Nurse Practitioner Family; Visit Provider Surgery
PROC: 0DJD8ZZ Inspection of Lower Intestinal Tract, Via Natural or Artificial Opening Endoscopic (ICD-10-PCS; CPT 45330; 2024-11-12 09:00)
DX: Z12.11 Encounter for screening for malignant neoplasm of colon (principal); G47.33 Obstructive sleep apnea (adult) (pediatric); J44.9 Chronic obstructive pulmonary disease, unspecified; E78.5 Hyperlipidemia, unspecified; I73.9 Peripheral vascular disease, unspecified; Z87.891 Personal history of nicotine dependence
CPT/HCPCS: G0121; J2704; J7030; J9999

== ENCOUNTER 2024-11-19 05:00 | Outpatient (RCR) | payer MEDICARE, SELFPAY | END 2024-12-19 23:59 | disposition home or self-care (01) | LOC: TPT 05:00 | PROVIDERS: Visit Provider Nurse Practitioner Family | DX: M54.50 Low back pain, unspecified (principal); G89.29 Other chronic pain | CPT/HCPCS: 97110; 97161 ==

== ENCOUNTER → 2024-11-25 08:55 | Outpatient (BNVA) | payer MEDICARE, SELFPAY | PROVIDERS: PCP Nurse Practitioner Family; Visit Provider Surgery | DX: Z09 Encounter for follow-up examination after completed treatment for conditions other than malignant neoplasm (principal) | CPT/HCPCS: 99212 ==

== ENCOUNTER 2024-12-20 06:30 | Outpatient (RCR) | payer MEDICARE, SELFPAY | END 2024-12-24 14:31 | disposition home or self-care (01) | LOC: TPT 06:30 | PROVIDERS: PCP Nurse Practitioner Family; Visit Provider Nurse Practitioner Family | DX: M54.50 Low back pain, unspecified (principal); G89.29 Other chronic pain | CPT/HCPCS: 97110 ==

== ENCOUNTER → 2024-12-24 10:11 | Outpatient (BNVA) | payer MEDICARE, SELFPAY | PROVIDERS: PCP Nurse Practitioner Family; Visit Provider Nurse Practitioner Family | DX: E78.5 Hyperlipidemia, unspecified (principal); M54.50 Low back pain, unspecified; G89.29 Other chronic pain; R07.81 Pleurodynia; N52.9 Male erectile dysfunction, unspecified; R25.1 Tremor, unspecified | CPT/HCPCS: 80053; 80061; 84443; 85025 ==

== ENCOUNTER 2024-12-28 08:44 | Outpatient (CLI) | payer MEDICARE, SELFPAY ==
--- NOTE | 2024-12-28 08:52 | XRR_ITS ---
PROCEDURE INFORMATION: Exam: XR Left Ribs with PA Chest Exam date and time: 12/28/2024 8:57 AM Age: 74 years old Clinical indication: Pain; Pleurodynia; Additional info: R07.81 - pleurodynia TECHNIQUE: Imaging protocol: Radiologic exam of the left ribs with PA chest. Views: 3 views COMPARISON: CT abdpel wo/w [id number] 06/30/2024 12:56 PM FINDINGS: Lungs: Unremarkable. No consolidation. Pleural spaces: Unremarkable. No pleural effusion. No pneumothorax. Heart/Mediastinum: Unremarkable. No cardiomegaly. Bones/joints: Diffuse degenerative change of the visualized osseous structures. No displaced rib fractures. XR/XR ribs LT mn 3V w CXR1V [id number] IMPRESSION: No acute findings. Consider CT of the chest for further assessment.
--- NOTE | 2024-12-28 08:52 | XRR_ITS ---
PROCEDURE INFORMATION: Exam: XR Lumbosacral Spine Exam date and time: 12/28/2024 8:57 AM Age: 74 years old Clinical indication: Low back pain; Additional info: M54.50 - low back pain, unspecified TECHNIQUE: Imaging protocol: Radiologic exam of the lumbosacral spine. Views: 2 or 3 views. COMPARISON: MR lumbar spine wo con* [id number] 01/16/2018 6:44 AM FINDINGS: Bones/joints: Diffuse degenerative change of the visualized osseous structures. Spinous processes appear to abut on the lateral projection. Soft tissues: Unremarkable. Gastrointestinal tract: Prominent colonic stool burden. Vasculature: Diffuse atherosclerotic disease. XR/XR lumbar spine 2-3V* [id number] IMPRESSION: 1. No acute osseous abnormality. 2. Degenerative changes. 3. Findings can be seen in Ba[place]rup's disease.
== END 2024-12-28 08:45 | disposition home or self-care (01) ==
PROVIDERS: PCP Nurse Practitioner Family; Visit Provider Nurse Practitioner Family
DX: M54.50 Low back pain, unspecified (principal); G89.29 Other chronic pain; R07.81 Pleurodynia; R93.7 Abnormal findings on diagnostic imaging of other parts of musculoskeletal system; R93.89 Abnormal findings on diagnostic imaging of other specified body structures; I70.90 Unspecified atherosclerosis
CPT/HCPCS: 71101; 72100

== ENCOUNTER 2025-01-07 13:59 | Outpatient (CLI) | payer MEDICARE, SELFPAY ==
--- NOTE | 2025-01-07 14:30 | MR_ITS ---
WS: [id number] MRI LUMBAR SPINE NONCONTRAST HISTORY: M54.50 - Low back pain, unspecified COMPARISON: 01/16/2018 TECHNIQUE: Sagittal and axial multisequence imaging is submitted. Increase in thoracic kyphosis. Biconcave thoracic spine fractures at T6 and T8 without retropulsion. No edema. No cord compression. Mild increase in lumbar lordosis. Disc spaces are slightly narrowed. No marrow edema or fracture. Visualized sacrum is negative. Conus terminates normally at L1-2 disc level. L1-L2: Mild facet arthritis. Mild RIGHT foraminal stenosis. L2-L3: Mild annular disc bulging with mild ligamentum flavum and facet arthritis. Small amount of fluid in the facet joints. Mild bilateral foraminal stenosis. Mild disc bulging extends slightly greatest to the RIGHT. L3-L4: Mild annular disc bulging encroaching upon the subarticular recesses and traversing L4 nerve roots. Ligamentum flavum and facet arthritis. Mild subarticular recess and bilateral foraminal stenosis. L4-L5: Mild annular disc bulging with a central disc protrusion. Mild disc encroachment upon the ventral thecal sac. Moderate ligamentum flavum and facet arthritis. Bilateral foraminal disc protrusions. Progression of stenosis and degenerative changes at the L4-5 level since the prior exam. Mild central, bilateral subarticular recess and mild to moderate foraminal stenosis, RIGHT greater than LEFT. Very mild disc contact on the RIGHT exiting L4 nerve root. L5-S1: Mild annular disc bulging with ligamentum flavum and facet arthritis. Small central disc osteophyte encroaching upon the ventral thecal sac. Mild bilateral foraminal stenosis. Shallow RIGHT foraminal disc protrusion. Mild atherosclerosis aorta but no aneurysm. MR/MR lumbar spine wo con* [id number] IMPRESSION: 1. Mild progression of degenerative disc disease and facet arthritis since 12/21. 2. L4-5: Small central disc protrusion. Small bilateral foraminal disc protrus ions. Mild central, bilateral subarticular recess and mild to moderate foramina l stenosis. There is mild disc contact on the RIGHT exiting L4 nerve root. 3. L5-S1: Mild bilateral foraminal stenosis and a shallow RIGHT foraminal disc protrusion. 4. L3-4: Mild subarticular recess and bilateral foraminal stenosis. 5. L2-3: Mild bilateral foraminal stenosis. 6. Chronic biconcave T6 and T8 compression fractures.
== END 2025-01-07 14:00 | disposition home or self-care (01) ==
LOC: RAD 14:00
PROVIDERS: PCP Nurse Practitioner Family; Visit Provider Nurse Practitioner Family
DX: M51.369 Other intervertebral disc degeneration, lumbar region without mention of lumbar back pain or lower extremity pain (principal); M48.061 Spinal stenosis, lumbar region without neurogenic claudication; M47.816 Spondylosis without myelopathy or radiculopathy, lumbar region; M51.26 Other intervertebral disc displacement, lumbar region; G89.29 Other chronic pain; C67.9 Malignant neoplasm of bladder, unspecified
CPT/HCPCS: 72148

== ENCOUNTER 2025-01-15 12:19 | Outpatient (CLI) | payer MEDICARE, SELFPAY ==
--- NOTE | 2025-01-15 12:45 | CT_ITS ---
WS: [id number] CT chest w con* [id number] HISTORY: R07.81 - Pleurodynia TECHNIQUE: Axial imaging performed through the thorax. Coronal and sagittal reformats are submitted. All CT scans at [facility] use at least one of these dose optimization techniques: automated exposure control; mA and/or kV adjustment per patient size (includes targeted exams where dose is matched to clinical indication); or iterative reconstruction. CONTRAST: Omnipaque 350; 100 mL IV. DLP: 375.31 mGy.cm COMPARISON: 06/30/2024 Lungs and central airway: Moderate pulmonary hyperexpansion. No mass or pulmonary nodule. No pneumonia. Benign granuloma LEFT lower lobe. Pleura: Normal. No pleural effusion. Heart and pericardium: Normal size heart with no pericardial effusion. Mediastinum and missy: 12 mm RIGHT suprahilar lymph node no change since 06/30/2024. Vessels: Mild atherosclerosis aorta. Normal size aorta and pulmonary artery. Chest wall and lower neck: No soft tissue masses. Upper abdomen: Tricuspid regurgitation into the hepatic veins. No adrenal mass. Osseous structures: Moderate increase in thoracic kyphosis. Multiple osteoporotic fractures. Mild compression deformity T3, biconcave fracture of T6 and T8. CT/CT chest w con* [id number] IMPRESSION: 1. No pulmonary mass or nodule. 2. No pneumonia. 3. Moderate centrilobular emphysema. 4. No pleural effusions. 5. Stable 12 mm RIGHT suprahilar lymph node since 06/30/2024. 6. Compression fractures T3, T6 and T8.
[2025-01-15] MEDS: iohexol 350 mg/mL 500 mL Btl (per mL) IV (12:54)
== END 2025-01-15 12:20 | disposition home or self-care (01) ==
LOC: RAD 12:21
PROVIDERS: PCP Nurse Practitioner Family; Visit Provider Nurse Practitioner Family
DX: R07.81 Pleurodynia (principal); C67.9 Malignant neoplasm of bladder, unspecified; J84.10 Pulmonary fibrosis, unspecified; J43.2 Centrilobular emphysema; R59.0 Localized enlarged lymph nodes; M40.204 Unspecified kyphosis, thoracic region; M80.08XA Age-related osteoporosis with current pathological fracture, vertebra(e), initial encounter for fracture; S22.030A Wedge compression fracture of third thoracic vertebra, initial encounter for closed fracture; S22.060A Wedge compression fracture of T7-T8 vertebra, initial encounter for closed fracture; I36.1 Nonrheumatic tricuspid (valve) insufficiency; J98.4 Other disorders of lung
CPT/HCPCS: 71260

== ENCOUNTER → 2025-02-09 14:54 | Outpatient (BNVA) | payer MEDICARE, SELFPAY | PROVIDERS: PCP Nurse Practitioner Family; Visit Provider Orthopaedic Surgery | DX: M54.9 Dorsalgia, unspecified (principal); M54.50 Low back pain, unspecified; G89.29 Other chronic pain | CPT/HCPCS: 72072; 72110; 99203 ==